=== PATIENT | male | born 1960 | race Caucasian/White ===

== ENCOUNTER 2020-08-07 22:59 | Inpatient (IN) | payer OTHER ==
[~2020-08-07] VITALS: Ht 182.9 cm; Wt 93.0 kg
--- NOTE | 2020-08-07 22:59 | NUR ---
ADMIT 59 YO M FROM INCARCERATION WITH N/V SOB NEWLY DX COVID HX GERD AT FIB.HAVING LO SAO2 READINGS NO CP NO COUGH NO SOB.SAYS HE HAS VOMITED PAST SEVERAL DAYS BUT STILL HAS APPETITE.
--- NOTE | 2020-08-07 23:51 | NUR ---
MEDICATED FOR UNCONTROLLED A FIB.DENIES CP NO SOB NO COUGH OR CONGESTION.VENT RATE VARIABLE 97-125 BPM
[2020-08-07 23:52] LABS: HEMATOCRIT 48.3 % (39.0-50.0); HEMOGLOBIN 16.1 g/dl (14.0-18.0); IMMATURE GRANULOCYTES 0.4 % (0.0-5.0); MEAN CELL VOLUME 94.5 fL CALC (80.0-100.0); MEAN CORPUSCULAR HGB 31.5 pG CALC (26.0-32.0); MEAN CORPUSCULAR HGB CONC 33.3 g/dL CAL (32.0-36.0); NEUT# 6.84 thou/uL (1.82-7.42); RED BLOOD COUNT 5.11 mill/uL (4.70-6.10); RED CELL DISTRI WIDTH 11.8 % (11.5-15.5)
[2020-08-08] VITALS (7 sets, daily range): BP systolic 106–170; BP diastolic 63–87
[2020-08-08 00:04] LABS: ALBUMIN 4.1 g/dL (3.2-5.0); ALKALINE PHOSPHATASE 66 u/l (38-126); ANION GAP 16 (6-22 (CALC)); BUN 30 mg/dL (9-20); BUN/CREATININE RATIO 41 (12-20 (CALC)); CARBON DIOXIDE 22 mmol/l (22-30); CHLORIDE 105 mmol/l (95-108); CREATININE 0.7 mg/dL (0.7-1.3); GFR > 60 ML/MIN (>=60 (CALC)); GFR FOR AFR.AMER. > 60 ML/MIN (>=60 (CALC)); SGOT/AST 86 u/l (17-59); SODIUM 138 mmol/l (137-146); TOTAL PROTEIN 7.9 g/dL (6.3-8.2)
[2020-08-08] MEDS ORDERED: PROTONIX40 M2 PO (00:08)
[2020-08-08] MEDS ORDERED: LEVOTHYROXIN50 MC1 PO (00:09)
[2020-08-08] MEDS ORDERED: DIGITEK0.25 M1 PO (00:10)
[2020-08-08] MEDS ORDERED: LIPITOR20 M1 PO (00:10)
[2020-08-08] MEDS ORDERED: EYE ALLERG1 (00:12)
--- NOTE | 2020-08-08 00:12 | NUR ---
AT FIB V RATE VARIABLE FROM 93-122 BPM.NO CP NO SOB
[2020-08-08] MEDS ORDERED: DILTIAZEM90 M1 PO (00:14)
[2020-08-08] MEDS ORDERED: WARFARIN SODIUM1 MG PO (00:16)
[2020-08-08] MEDS ORDERED: CARBAMAZEPIN200 M1 PO (00:16)
[2020-08-08] MEDS ORDERED: MIRTAZAPINE15 M1 PO (00:17)
[2020-08-08 00:18] LABS: INTERNATIONAL NORMALIZED RATIO 1.4 RATIO (0.7-1.3); PROTHROMBIN TIME 13.7 SECONDS (9.0-12.5)
[2020-08-08 00:33] LABS: DIGOXIN < 0.4 ng/mL (0.8-2.0)
--- NOTE | 2020-08-08 00:44 | NUR ---
WATER PO.AT REQUEST OF PT.NO COUGH NO CONGESTION
--- NOTE | 2020-08-08 01:40 | NUR ---
IV FLUIDS INFUSING ORDERED WITHOUT REMARK NO COUGH NO CONGESTION
[2020-08-08 02:01] LABS: C-REACTIVE PROTEIN 25.4 mg/dL (0-0.9)
--- NOTE | 2020-08-08 02:10 | NUR ---
PHONE REPORT TO NURSE JENSEN ON MS
--- NOTE | 2020-08-08 02:15 | NUR ---
PT TRANSPORTED TO [facility] VIA WC ON O2 AND TELE IN STABLE CONDITION
--- NOTE | 2020-08-08 02:25 | NUR ---
PT TO ROOM VIA WC ACCOMPANIED BY STAFF AND GUARD X1; O2 4L VIA NC, LUNGS WITH CRACKLES AT THE BASES, EYEGLASS FRAMES POLISHER COUGH NOTED; PT DENIES PAIN; A/0 X4; TELE MONITOR IN PLACE AFIB 90 PER ER UC; #[address] IVF INFUSING WITHOUT DIFFICULTY; PT VOIDS IN URINAL WELL; PT ORIENTED TO ROOM AND CALL SYSTEM; RT ANKLE SHACKLED TO BED; WILL CONTINUE TO MONITOR.
--- NOTE | 2020-08-08 04:33 | NUR ---
REPORT RECEIVED FROM LINDA JENSEN. PT RESTING IN BED ON RIGHT SIDE. C/O DISCOMFORT BEHIND LEFT EAR AND REPORTS THAT THE AREA FEEL "HARD". NO SWELLING OR REDNESS NOTED TO AREA. C/O GENERALIZED BODY ACHES. RESPIRATIONS EVEN AND UNLABORED ON 3L O2 VIA NC; SPO2 92%. REMAINS ON AIRBORNE/CONTACT PRECAUTIONS FOR POSITIVE COVID. GUARD AT BEDSIDE. CALL LIGHT WITHIN REACH.
--- NOTE | 2020-08-08 05:35 | NUR ---
RT AT BEDSIDE FOR EKG.
--- NOTE | 2020-08-08 07:22 | NUR ---
PT note Patient is screened for PT intervention and no needs are identified at this time
--- NOTE | 2020-08-08 09:20 | NUR ---
PT USED CALL LIGHT TO REPORT C/O OF CHEST PRESSURE; HR IN THE 120'S; AFIB ON NURSE ORTHO. DR. DAVILA NOTIFIED AND HOME MEDS SCHEDULED. WILL CONTINUE TO MONITOR.
--- NOTE | 2020-08-08 09:41 | NUR ---
PT AMBULATED TO BATHROOM FOR BOWEL MOVEMENT; NOT UP TO CHAIR.
--- NOTE | 2020-08-08 10:20 | NUR ---
CARDIZEM PO GIVEN FOR AFIB RVR; HR IN THE 160'S; PT SITTING UP IN CHAIR WITH NO COMPLAINTS AT THIS TIME. ROCEPHIN INFUSING; IV SITE APPEARS HEALTHY AND FLUSHES. NAUSEA HAS SUBSIDED AFTER EPISODE OF DIARRHEA.
--- NOTE | 2020-08-08 10:48 | NUR ---
89% ON 4L VIA NC; PT SITTING UP IN CHAIR; BREATHING TECHNIQUES ENCOURAGED. OXYGEN TITRATED UP TO 5L; WILL CONTINUE TO MONITOR.
--- NOTE | 2020-08-08 11:33 | NUR ---
DIRECTOR INDUSTRIAL RELATIONS CONTINUES TO READ AFIB RVR WITH HEART RATE IN THE 160'S WHILE PT IS AT REST. EKG ORDERED.
--- NOTE | 2020-08-08 11:45 | NUR ---
RT AT BEDSIDE FOR EKG.
--- NOTE | 2020-08-08 12:22 | NUR ---
EKG READING OF AFIB 116. VSS. MANUAL HR 108; ACCU CHECK 213. PT SLIGHTLY DIAPHORETIC, OTHERWISE ASYMPTOMATIC. DENIES CHEST PRESSURE, NAUSEA, SOB. SPO2 92% ON 5L. LABS OBTAINED BY NURSE AND SENT TO LAB AT THIS TIME. PER [facility] SAMPLING EXPERT INSTRUCTED TO NOTIFY NURSE OF HEART RATE SUSTAINING GREATER THAN 125. PT NOW SITTING UP EATING FULL LIQUID LUNCH; PT REQUESTED FULL LIQUID DIET DUE TO NAUSEA. CALL LIGHT WITHIN REACH.
[2020-08-08 13:02] LABS: DIGOXIN 0.4 ng/mL (0.8-2.0); MAGNESIUM 2.1 mg/dL (1.6-2.3)
--- NOTE | 2020-08-08 13:58 | NUR ---
UP TO BATHROOM FOR BM; INCONTINENT OF SOME DUE TO URGENCY. HEART RATE INCREASED INTO 140S-160S WTH EXERTION.
--- NOTE | 2020-08-08 16:01 | NUR ---
SPO2 ON 5L IS NOW 84-87%; OXYGEN TITRATED UP TO 6L VIA NC; SPO2 CURRENTLY 91% WITH ENCOURAGED BREATHING; PT DOES NOT TAKE DEEP BREATHS. IV FLUIDS DISCONTINUED PER ORDER. WILL CONTINUE TO MONITOR.
--- NOTE | 2020-08-08 16:33 | NUR ---
HIGH FLOW NC APPLIED WITH HUMIDIFIED OXYGEN AT 6L.
--- NOTE | 2020-08-08 18:00 | NUR ---
INCENTIVE SPIROMETER PROVIDED; PT GIVEN VERBAL EDUCATION AND INSTRUCTION. SPO2 93% 6L HF NC WHILE PERFORMING RETURN DEMONSTRATION. INSPIRATORY VOLUME ALMOST TO 1500. PT UP TO CHAIR FOR DINNER.
--- NOTE | 2020-08-08 20:52 | NUR ---
PT MEDICATED ORDERS PROVIDE AND ASSESSMENT COMPLETED AT THIS TIME. NO S/O DISTRESS NOTED. PT IS IN HIGH FOWLERS POSITION IN THE BED. OXYGEN HIGH FLOW 6L AT THIS TIME. OXYGEN SAT LEVEL 96% AT THIS TIME. WILL CONTINUE TO MONITOR CLOSELY. PT DENIES FEELING SOB AT THIS TIME. CALL LIGHT AT SIDE AND PT ENCOURAGED TO CALL NEEDS ARISE. GUARD X1 AT BEDSIDE WHEN WE ENTER THE ROOM, OTHERWISE GUARD STAYS OUTSIDE THE ROOM.
--- NOTE | 2020-08-08 23:40 | NUR ---
PT MEDICATED ORDERS PROVIDE AND ASSESSMENT COMPLETED AT THIS TIME. NO S/O DISTRESS NOTED. ENCOURAGED PT TO CALL ANY NEEDS ARISE. GUARD AT BEDSIDE X1 AND CALL LIGHT AT SIDE.
[2020-08-09] VITALS: BP 111/62
[2020-08-09 04:00] VITALS: BP 96/55
--- NOTE | 2020-08-09 04:00 | NUR ---
CAMPUS COORDINATOR and guard in with pt transferring to restroom.
[2020-08-09 05:27] LABS: HEMOGLOBIN 14.4 g/dl (14.0-18.0); IMMATURE GRANULOCYTES 0.7 % (0.0-5.0); MEAN CELL VOLUME 94.3 fL CALC (80.0-100.0); MEAN CORPUSCULAR HGB 31.6 pG CALC (26.0-32.0); MEAN CORPUSCULAR HGB CONC 33.5 g/dL CAL (32.0-36.0); NEUT# 5.63 thou/uL (1.82-7.42); RED BLOOD COUNT 4.56 mill/uL (4.70-6.10); RED CELL DISTRI WIDTH 11.8 % (11.5-15.5)
[2020-08-09 05:47] LABS: INTERNATIONAL NORMALIZED RATIO 1.4 RATIO (0.7-1.3)
[2020-08-09 06:04] LABS: ALBUMIN 3.3 g/dL (3.2-5.0); ALKALINE PHOSPHATASE 64 u/l (38-126); ANION GAP 12 (6-22 (CALC)); BILIRUBIN, TOTAL 0.7 mg/dL (0.0-1.4); BUN 27 mg/dL (9-20); BUN/CREATININE RATIO 40 (12-20 (CALC)); CARBON DIOXIDE 26 mmol/l (22-30); CHLORIDE 107 mmol/l (95-108); CREATININE 0.7 mg/dL (0.7-1.3); GFR > 60 ML/MIN (>=60 (CALC)); GFR FOR AFR.AMER. > 60 ML/MIN (>=60 (CALC)); POTASSIUM 4.3 mmol/l (3.5-5.1); SGOT/AST 116 u/l (17-59); SODIUM 140 mmol/l (137-146)
[2020-08-09 06:16] LABS: C-REACTIVE PROTEIN 19.8 mg/dL (0-0.9)
[2020-08-09 08:00] VITALS: BP 89/52
--- NOTE | 2020-08-09 09:00 | NUR ---
PT SEEN AWAKE, ALERT, ORIENTED X 3. LUNGS CLEAR BUT DIMINISHED THROUGHOUT, 6 LPM UPPED TO 8 LPM SA PER SAT 90%. CARDIZEM HELD AT THIS TIME PER BP 89/52. PT DOES BECOME TACHYCARDIC WHEN UP TO BR INTO THE 130-170 RANGE PER CULLET CRUSHER AND WASHER. MACHUCA.
[2020-08-09 11:41] VITALS: BP 100/56
--- NOTE | 2020-08-09 13:00 | NUR ---
PT CONTNUES AT 8 LPM, SATS MID 90s. PT SEEN PRONE IN BED. NO ACUTE DISTRESS PT AT REST IN THE BED.
[2020-08-09 15:29] VITALS: BP 118/65
--- NOTE | 2020-08-09 17:11 | NUR ---
NO SIGNIFICANT CHANGE IN STATUS PT REMAINS AT REST IN THE BED OR CHAIR. GUARDS X 2 OUTSIDE ROOM.
[2020-08-09 19:00] VITALS: BP 121/73
--- NOTE | 2020-08-09 20:55 | NUR ---
PT MEDICATED ORDERS PROVIDE AND ASSESSMENT COMPLETED AT THIS TIME. LUNG SOUNDS CLEAR/DIM THROUGHOUT, MILD WHEEZE RUL. REPORTS 2X LOOSE STOOL. PT IS ON 8LHIGH FLOW NC AT THIS TIME. DENIES FEELING SOB AT THIS TIME. PT IS SITTING UP IN RECLINER. NO S/O DISTRESS AT THIS TIME.
[2020-08-10] VITALS: BP 107/64
--- NOTE | 2020-08-10 00:04 | NUR ---
PT SLEEPING, NO S/O DISTRESS NOTED. CALL LIGHT AT SIDE.
--- NOTE | 2020-08-10 02:00 | NUR ---
Pt sleeping, awoke to my entering room. Attempted to titrate oxygen level down, pt 02sat level @92% on 6L kept pt on 6L at this time. pt denies any other needs.
[2020-08-10 04:00] VITALS: BP 98/53
--- NOTE | 2020-08-10 05:55 | NUR ---
PT SLEEPING SOUNDLY, NO S/O DISTRESS. GUARD OUTSIDE ROOM.
[2020-08-10 07:48] VITALS: BP 128/79
--- NOTE | 2020-08-10 07:48 | NUR ---
RECIEVED REPORT NUBIA BRYANT RN. PT RESTING IN SEMI FOWLERS POSITION UPON ENTERING ROOM. INRTODUCED SELF TO PT AND DISCUSSED POC. PT IS A/O AND FROM [facility] WITH GUARD OUTSIDE ROOM. ASSESSMENT AND VITALS OBTAINED. RESPIRATIONS ARE EVEN AND UNLABORED ON 8L HIGH FLOW. O2 SAT 84%. OXYGEN INCREASED TO 10L HIGH FLOW SATING AT 93% WITH PT IN PRONE POSITION. WRITTER ENCOURGAED PT RESTING IN PRONE POSITION. PT REFUSED.MD TO BE NOTIFIED. HEART RHYTHM NORMAL WITH TELE IN PLACE, AFIB 108 PER ER MONITORING. #18G IN LEFT HAND FLUSHED SITE APPEARS HEALTHY AND PATENT. PT EDUCATED ON NEED FOR CHANGING DUE TO EMS SITE. PT VERBAILZED UNDERSTANDING. PT DENIES ANY PAIN OR DISCOMFORTS AT THIS TIME. ALL SAFETY PRECAUTIONS ARE IN PLACE WIHT CALL LIGHT IN REACH. WILL CONTINUE TO MONITOR
--- NOTE | 2020-08-10 08:12 | NUR ---
PRELIM BLOOD CX RESULTS SHOW GRAM POSITIVE COCCI IN 1 AEROBIC BOTTLE. RESULTS CALLED TO MARIO HERNANDEZ. LIKELY A CONTAMINANT. WILL F/U WITH FINAL
[2020-08-10 12:12] VITALS: BP 119/68
--- NOTE | 2020-08-10 12:15 | NUR ---
PT RESTING IN SEMI FOWLERS POSITION ON LEFT SIDE. RESPIRATIONS ARE EVEN AND UNLABORED ON 10L NC.NO SIGNS OF DISTRESS NOTED.TELE IN PLACE. PT DENIES ANY PAIN AT THIS TIME. PT TO BE TRANSFERED TO ICU. AWAITNG FOR ROOM TO BE CLEANED. ALL SFAETY PRECAUTIONS ARE IN PLACE WITH GUARDS OUTSIDE ROOM. ISOLATION PRECAUTIONS IN PLACE. WILL CONTINUE TO MONITOR
--- NOTE | 2020-08-10 14:58 | NUR ---
REPORT GIVEN TO LINDA FRANK.
--- NOTE | 2020-08-10 15:00 | NUR ---
NEW #20G STARTED IN LAC, SITE APPEARS HEALTHY AND PATENT. #18G IN LH REMOVED WITH CATHATER STILL INTACT. PT TOLERATED WELL.
--- NOTE | 2020-08-10 15:20 | NUR ---
PT TRANSFERED TO IVCU BED 1 VIA BED
--- NOTE | 2020-08-10 15:25 | NUR ---
PT BROUGHT TO ROOM 1 FROM [facility] BECAUSE PT CONTINUES TO REQUIRE HIGH FLOW OXYGEN, PT ALERT/ORIENTED X3, DENIES ANY SOB AT THIS TIME, PT LAYING PRONE ON BED, OFFICER SITTING OUTSIDE OF ROOM WITH MASK ON.
--- NOTE | 2020-08-10 17:10 | NUR ---
PT RESTING QUIETLY ON BED, NO COMPLAINT AT THIS TIME, VITAL SIGNS STABLE.
[2020-08-10 18:00] VITALS: BP 106/54
--- NOTE | 2020-08-10 18:42 | NUR ---
PT LAYING IN BED, OFFICER OUTSIDE ROOM, NO DISTRESS NOTED, PT DENIES ANY SOB AT THIS TIME. LAYING ON LEFT SIDE WATCHING TV.
--- NOTE | 2020-08-10 20:30 | NUR ---
PATIENT RESTING IN BED. O2 VIA NC IN PLACE AT 10 LITERS. OXYGEN SATURATION MAINTAINING ABOVE 90%. RESPIRATIONS NONLABORED. VAD SALINE LOCKED. DENIES PAIN. SKIN INTACT. NO COMPLAINTS. SHACKLED TO BED. MONITORING.
[2020-08-10 21:00] VITALS: BP 97/54
--- NOTE | 2020-08-10 22:00 | NUR ---
PATIENT RESTING IN BED. NO ACUTE DISTRESS. MEDICATIONS GIVEN. COMPLIANT. NO COMPLAINTS. OXYGEN SATURATION MAINTIANING. BED IN LOW POSITION. CALL LIGHT WITHIN REACH. MONITORING.
[2020-08-11] VITALS (10 sets, daily range): BP systolic 94–127; BP diastolic 40–81
--- NOTE | 2020-08-11 | NUR ---
RESTING QUIETLY WITH EYES CLOSED. NO ACUTE DISTRESS NOTED. BED IN LOW POSITION. CALL LIGHT WITHIN REACH. MONITORING.
--- NOTE | 2020-08-11 01:59 | NUR ---
PATIENT OXYGEN SATURATION DROPPED TO MID 80S. INSTRUCTED PATIENT TO LIE MORE PRONE FOR FAM OXYGENATION. COMPLIED. OXYGEN SATURATION 89-90%. MONITORING.
--- NOTE | 2020-08-11 04:18 | NUR ---
PATIENT MAINTAINING OXYGENATION IN THE 90S. NO ACUTE DISTRESS OBSERVED. WARM BLANKETS GIVEN. C/O BEING COLD. REPORTS FEELING MUCH BETTER. MONITORING.
[2020-08-11 05:51] LABS: HEMATOCRIT 43.4 % (39.0-50.0); HEMOGLOBIN 14.2 g/dl (14.0-18.0); IMMATURE GRANULOCYTES 1.2 % (0.0-5.0); MEAN CELL VOLUME 95.4 fL CALC (80.0-100.0); MEAN CORPUSCULAR HGB 31.2 pG CALC (26.0-32.0); MEAN CORPUSCULAR HGB CONC 32.7 g/dL CAL (32.0-36.0); NEUT# 8.84 thou/uL (1.82-7.42); RED BLOOD COUNT 4.55 mill/uL (4.70-6.10); RED CELL DISTRI WIDTH 11.8 % (11.5-15.5)
[2020-08-11 06:27] LABS: ALKALINE PHOSPHATASE 60 u/l (38-126); BILIRUBIN, TOTAL 0.6 mg/dL (0.0-1.4); BUN 18 mg/dL (9-20); BUN/CREATININE RATIO 34 (12-20 (CALC)); C-REACTIVE PROTEIN 5.5 mg/dL (0-0.9); CARBON DIOXIDE 23 mmol/l (22-30); CHLORIDE 107 mmol/l (95-108); CREATININE 0.5 mg/dL (0.7-1.3); GFR > 60 ML/MIN (>=60 (CALC)); GFR FOR AFR.AMER. > 60 ML/MIN (>=60 (CALC)); SGOT/AST 36 u/l (17-59); SODIUM 137 mmol/l (137-146); TOTAL PROTEIN 5.9 g/dL (6.3-8.2)
[2020-08-11 06:28] LABS: ANION GAP 13 (6-22 (CALC)); POTASSIUM 5.8 mmol/l (3.5-5.1)
--- NOTE | 2020-08-11 06:34 | NUR ---
PATIENT RESTING IN BED. OXYGEN SATURATION 92% ON 12 LITERS NC. MONITORING.
--- NOTE | 2020-08-11 07:18 | NUR ---
PT REPORT RECEIVED, PT RESTING QUIETLY ON LEFT SIDE ON BED, PT DENIES ANY COMPLAINT AT THIS TIME.
--- NOTE | 2020-08-11 10:29 | NUR ---
PT SITTING UP IN CHAIR, VITAL SIGNS STABLE.
--- NOTE | 2020-08-11 12:40 | NUR ---
PT RESTING QUIETLY ON STRETCHER, VITAL SIGNS REMAIN STABLE.
--- NOTE | 2020-08-11 14:22 | NUR ---
PT PLACED BACK IN BED IN PRONE POSITION PER PT REQUEST. VITAL SIGNS STABLE
--- NOTE | 2020-08-11 14:26 | NUR ---
08/10/20 PT note Patient is seen for CPT including DBE . He appears stronger and in better spirits today. Incentivev spirmoter to 1000 but still unable to hold his breath for even 2 seconds. His CWE is remarkably poor. He is instructed to conitue DBE every hour he is awake
--- NOTE | 2020-08-11 15:16 | NUR ---
LAB HERE FOR BLOOD DRAW
[2020-08-11 15:46] LABS: INTERNATIONAL NORMALIZED RATIO 3.1 RATIO (0.7-1.3); PROTHROMBIN TIME 29.6 SECONDS (9.0-12.5)
--- NOTE | 2020-08-11 16:06 | NUR ---
WAITING FOR NEW ORDER AFTER PT/INR LEVEL OF COUMADIN FROM DR. HANNA
--- NOTE | 2020-08-11 17:48 | NUR ---
PT SITTING UP IN BED, WATCHING TV, DENIES ANY COMPLAINTS AT THIS TIME, DENIES ANY INCREASED SOB. ALERT/ORIENTED X3. GUARD REMAINS OUTSIDE OF DOOR
--- NOTE | 2020-08-11 19:00 | NUR ---
REPORT RECEIVED FROM Yoel TRACY RN, CARE OF PT ASSUMED AT THIS TIME.
--- NOTE | 2020-08-11 20:15 | NUR ---
UPON ENTERING ROOM PT IS SLEEPING, WAKES EASILY TO VERBAL STIMULI. WHEN ASKED HOW HE IS FEELING RESPONDS "WELL I WAS ASLEEP". PHYSICAL ASSESMENT COMPLETE. LUNGS ARE CLEAR AND DIMINISHED. PT DENIES COUGH AT PRESENT, STATES "ITS BEEN A WHILE SINCE I'VE HAD TO COUGH". PULMONARY HYGIENE REVIEWED AND ENCOURAGED. SCHEDULED MEDICATIONS ADMINISTERED, SEE E-MAR. PLAN OF CARE REVIEWED. PT VERBALIZES UNDERSTANDING AND DENIES QUESTIONS. PT IS A RESIDENT AT [facility]. LLE SHACKLED TO BED. GUARDS X2 SITTING OUTSIDE OF ROOM. PT IS ON ISOLATION FOR COVID-19. PT DENIES NEEDS AT THIS TIME. CALL WALKER WITHIN REACH, AGREES TO CALL PRN.
--- NOTE | 2020-08-11 21:00 | NUR ---
PT REPORTS CHEST PAIN, WHEN QUESTION DESCRIBES BURNING, 05/02, MIDSTERNAL WITH ONSET AFTER DINNER. DOES NOT RESPOND WHEN ASKED WHY HE HADN'T REPORTED PRIOR TO KNOW. HEMODYNAMICS REMAINS STABLE/WNL AND UNCHANGED. PT'S COMPLAINTS REPORTED TO Yoel HERNANDEZ APRN. ORDER FOR TROPONIN AND EKG NOW AND STATES SHE WILL ORDER SOMETHING FOR REFLUX VIA CPOE.
--- NOTE | 2020-08-11 21:10 | NUR ---
CARGO INSPECTOR ANITHA IN ROOM TO DRAW TROPONIN LEVEL. PT REPORTS NAUSEA AND REQUEST "SOMETHING TO THROW UP IN", EMESIS BAG PROVIDED.
--- NOTE | 2020-08-11 22:03 | NUR ---
EKG COMPLETED BY JORDAN ESPOSITO WITH RATE 0F 87, UNCHANGED FROM BASELINE.
--- NOTE | 2020-08-11 22:10 | NUR ---
TROPONIN RESULTS NEGATIVE. RESULTS OF TROPONIN AND EKG DISCUSSED WITH PATIENT. PT CON'T TO COMPLAIN OF NAUSEA, NO EMESIS, AND BURNING IN CHEST. PRN ZOFRAN AND MYLANTA ADMINISTERED, SEE E-MAR. PT'S PULSE-OX HAS COME OFF, NEW PULSE-OX APPLIED. PT STATES "THIS KEEPS COMING OFF", PT REFFERING TO NASAL CANNULA. IMPORTANCE OF MAINTAINING OXYGEN ON RE-INFORCED WITH PATIENT. PT VERBALIZES UNDERSTANDING. PT DENIES FURTHER NEEDS AT THIS TIME. CALL WALKER WITHIN REACH, AGREES TO CALL PRN.
[2020-08-12] VITALS (18 sets, daily range): BP systolic 90–113; BP diastolic 50–86
--- NOTE | 2020-08-12 00:08 | NUR ---
PT APPEARS TO BE SLEEPING COMFORTABLY, LAYING IN BED WITH EYES CLOSED, RESPIRATIONS REGULAR AND UNLABORED. NO APPARENT DISTRESS. CALL WALKER REMIANS WITHIN REACH. GUARDS REMAINS OUTSIDE OF ROOM.
--- NOTE | 2020-08-12 01:26 | NUR ---
HUMIDIFIER FOR HIGH FLOW NASAL CANNULA REFILLED
--- NOTE | 2020-08-12 03:35 | NUR ---
GREG MCKEON AT [facility] CALLS FOR UPDATES ON PT.
[2020-08-12 06:25] LABS: HEMATOCRIT 43.8 % (39.0-50.0); HEMOGLOBIN 14.4 g/dl (14.0-18.0); IMMATURE GRANULOCYTES 2.1 % (0.0-5.0); MEAN CELL VOLUME 96.1 fL CALC (80.0-100.0); MEAN CORPUSCULAR HGB 31.6 pG CALC (26.0-32.0); MEAN CORPUSCULAR HGB CONC 32.9 g/dL CAL (32.0-36.0); NEUT# 8.97 thou/uL (1.82-7.42); RED BLOOD COUNT 4.56 mill/uL (4.70-6.10)
[2020-08-12 06:42] LABS: INTERNATIONAL NORMALIZED RATIO 2.5 RATIO (0.7-1.3); PROTHROMBIN TIME 24.3 SECONDS (9.0-12.5)
[2020-08-12 06:51] LABS: ALBUMIN 3.1 g/dL (3.2-5.0); ALKALINE PHOSPHATASE 69 u/l (38-126); BILIRUBIN, TOTAL 0.5 mg/dL (0.0-1.4); BUN 20 mg/dL (9-20); BUN/CREATININE RATIO 33 (12-20 (CALC)); C-REACTIVE PROTEIN 5.1 mg/dL (0-0.9); CHLORIDE 103 mmol/l (95-108); CREATININE 0.6 mg/dL (0.7-1.3); GFR > 60 ML/MIN (>=60 (CALC)); GFR FOR AFR.AMER. > 60 ML/MIN (>=60 (CALC)); SGOT/AST 23 u/l (17-59); SODIUM 138 mmol/l (137-146); TOTAL PROTEIN 5.8 g/dL (6.3-8.2)
[2020-08-12 06:52] LABS: ANION GAP 10 (6-22 (CALC)); CARBON DIOXIDE 30 mmol/l (22-30); POTASSIUM 5.2 mmol/l (3.5-5.1)
--- NOTE | 2020-08-12 07:20 | NUR ---
pt resting in bed with eyes closed; no apparent distress noted; easily aroused; assessment completed at this time; pt alert and oriented; denies pain at current; no n/v noted; resp even and unlabored; exertional sob noted; lungs clear; skin color wnl; o2 per nc hi moy at 12L; production underwriter to attempt to wean o2; no cough noted; pt denies resp distress; hr irreg; strong pulses; no edema noted; afib on monitor; abd soft with bs present; no bm noted per production underwriter; voiding clear dk yellow urine without complication; urinal at bedside; #20 to lac saline locked; no redness or edema noted at site; plan of care/ IS/ am meds explained; call light within reach; will continue to monitor
--- NOTE | 2020-08-12 08:25 | NUR ---
awake in bed; o2 per nc; PT Jayme present at bedside; will continue to monitor
--- NOTE | 2020-08-12 09:10 | NUR ---
Patient is seen by PT for tapotment to the bases in sitting . He desaturated and demonstrated A fib with rate to the 120s with bedsaide sitting. Discussed with guard and patient that as soon as breakfast is over he needs to be sitting at EOB or prone. His CWE is improving but he has little tolerance for activity. When I left him, he had recovered to rate in the 80s and sats in the 90s. on O2 Am Pac is 12 given his activity intolerance
--- NOTE | 2020-08-12 10:04 | NUR ---
resting in bed with eyes closed; no apparent distress noted; o2 per nc; iv intact; call light within reach; will continue to monitor
--- NOTE | 2020-08-12 11:20 | NUR ---
PATIENT VOMITTING AT THIS TIME 400 ML. IV 4MG OF IV ZOFRAN GIVEN AT THIS TIME. PATIENT REPOSITION ONTO LEFT SIDE. SIDERAILS UP CALL LIGHT WITHIN REACH.
--- NOTE | 2020-08-12 11:20 | NUR ---
call placed to Justin Slaughter APRN in regards to pt complaints of chest pain; orders to be placed
--- NOTE | 2020-08-12 11:32 | NUR ---
pt admits to midsternal burning chest pain rating 10/10; medicated as per orders
--- NOTE | 2020-08-12 12:00 | NUR ---
Dr Baez notified per this life insurance underwriter in regards to pt complaints of burning chest pain midsternal rating 10/10; orders received and on chart; pt resting in bed; guard at outside room; iv intact; afib on monitor; o2 per nc; call light within reach; will continue to monitor
--- NOTE | 2020-08-12 14:20 | NUR ---
awake in bed; admits to feeling better since taking a nap; pt offers no complaints at this time; denies chest pain; afib on monitor; o2 per nc; iv flushed and patent; meds infusing; call light within reach; will continue to monitor
--- NOTE | 2020-08-12 15:59 | NUR ---
resting in bed with eyes closed; no apparent distress noted; o2 per nc; iv intact; afib on monitor; guard x1 outside room; call light within reach; will continue to monitor
--- NOTE | 2020-08-12 17:52 | NUR ---
resting in bed with eyes closed; no apparent distress noted; resp even and unlabored; o2 per nc at 12L; iv intact; afib on monitor; guard x1 outside of door; call light within reach
--- NOTE | 2020-08-12 19:00 | NUR ---
REPORT RECEIVED FROM Jocelyne HICKS RN, CARE OF PT ASSUMED AT THIS TIME.
--- NOTE | 2020-08-12 20:15 | NUR ---
PT APPEARS TO BE SLEEPING COMFORTABLY, RESPIRATIONS REGULAR AND UNLABORED, EYES CLOSED, NO APPARENT DISTRESS, SPO2 REMAINS >92%. PT WAKES EASILY TO VERBAL STIMULI. PHYSICAL ASSESMENT COMPLETE. PTS SPO2 DROPS T0 88-89% WHEN SITTING UP IN BED CONVERSING. STATES HAS BEEN TIRED ALL DAY, STATES "I HAVENT EVEN BEEN ABLE TO TOUCH MY DINNER". PT'S TRAY DOES REMAIN AT BEDSIDE UNTOUCHED. WHEN ASKED ABOUT INCENTIVE SPIROMETRY PT STATES HE HAS BEEN TO TIRED TO PERFORM. PULMONARY HYGIENE REVIEWED WITH PT AND ENCOURAGED. PT HAS A MOIST SOUNDING COUGH, REPORTS NON-PRODUCTIVE. LUNGS ARE CLEAR AND DIMINSIHED. SCHEDULED MEDICATIONS ADMINISTERED, SEE E-MAR. PLAN OF CARE REVIEWED, PT VERBALIZES UNDERSTANDING AND DENIES QUESTIONS. PT DENIES FURTHER NEEDS AT THIS TIME. CALL WALKER IN REACH, AGREES TO CALL PRN.
--- NOTE | 2020-08-12 22:17 | NUR ---
400 ML CLEAR YELLOW URINE EMPTIED FROM URINAL. PT RESTING IN BED LAYING ON HIS LEFT SIDE. RESPIRATIONS REGULAR AND UNLABORED. SPO2 97%. DENIES FURTHER NEEDS AT THIS TIME. CALL WALKER WITHIN REACH, AGREES TO CALL PRN.
[2020-08-13] VITALS (14 sets, daily range): BP systolic 90–119; BP diastolic 44–84
--- NOTE | 2020-08-13 04:22 | NUR ---
PT SITTING UP IN BED EATING PUDDING.
[2020-08-13 05:20] LABS: INTERNATIONAL NORMALIZED RATIO 2.8 RATIO (0.7-1.3); PROTHROMBIN TIME 26.4 SECONDS (9.0-12.5)
--- NOTE | 2020-08-13 05:35 | NUR ---
400 ML CLEAR YELLOW URINE EMPTIED FROM URINAL. PT RESTING IN BED LAYING ON HIS LEFT SIDE. RESPIRATIONS REGULAR AND UNLABORED. SPO2 96%. DENIES FURTHER NEEDS AT THIS TIME. CALL WALKER WITHIN REACH, AGREES TO CALL PRN.
--- NOTE | 2020-08-13 07:25 | NUR ---
pt awake in bed; no apparent distress noted; assessment completed at this time; pt agrumentive/ noncompliant with this underwriter; stating "black on his arm" while pointing to 2 areas; pt reassured one was a bruise and the other was the black writing on the iv label; pt admits to chest pain; denies n/v; resp even and unlabored; lungs clear/diminished bases; skin color wnl; o2 per nc at 12L; titrated to 10L with desats noted at 86%, o2 back up to 12L; checkroom attendant cough noted; hr reg; strong pulses; no edema noted; afib on monitor; abd soft with bs present; no bm noted; pt voiding without complication; urinal at bedside; #22 flushed and patent to lac; no redness or edema noted at site; covid prec continued; plan of care/ am meds explained; call light within reach; will continue to monitor
--- NOTE | 2020-08-13 08:27 | NUR ---
Dr Baez present at bedside to asses spt and discuss plan of care
--- NOTE | 2020-08-13 10:05 | NUR ---
resting in bed with eyes closed; no apparent distress noted; guard present outside of door; iv intact and patent; afib on monitor; o2 per nc; call light within reach; will continue to monitor
--- NOTE | 2020-08-13 11:45 | NUR ---
[facility] facility called per caption writer; spoke with LINDA Butt; update provided
--- NOTE | 2020-08-13 12:15 | NUR ---
awake in bed eating lunch; no apparent distress noted; iv intact; o2 per nc; afib on monitor; call light within reach; will continue to monitor
--- NOTE | 2020-08-13 14:02 | NUR ---
awake in bed resting on right side; no apparent distress noted; o2 per nc; iv intact; guard x1 outside room door; call light within reach; will continue to monitor
--- NOTE | 2020-08-13 16:00 | NUR ---
pt resting on right side; no apparent distress noted; afib on monitor; brief freq episodes of bradycardia noted/ afib 40s; iv intact; pt offers no complaints at present; o2 per nc; guard x1 outside door; call light within reach; will continue to monitor
--- NOTE | 2020-08-13 16:12 | NUR ---
ROBERT Slaughter called per this va underwriter; informed per this va underwriter that is having brief episodes of bradycardia/ afib 40s; meds reviewed; order received to hold digoxin this HS; will continue to monitor
--- NOTE | 2020-08-13 17:58 | NUR ---
resting in bed; no apparent distress noted; o2 per nc; afib on monitor; call light within reach
--- NOTE | 2020-08-13 20:15 | NUR ---
RESTING IN BED ON ROUNDS. RESP NON-LABORED AT REST. O2 AT 12 L, O2 SAT 97% BREATH SOUNDS DIMINISHED THROUGHOUT LUNG BRONSON. NO PERIPHERAL EDEMA, PULSES INTACT. SALINE LOCK IN LAC, SITE BENIGN. DISCUSSED PLAN OF CARE. DENIES NEEDS AT THIS TIME. CALL WALKER IN REACH. ASSOCIATE DIRECTOR SHOWS AFIB. SHACKLE TO RIGHT ANKLE, CMS ADEQUATE. GUARD IN ATTENDANCE.
--- NOTE | 2020-08-13 22:00 | NUR ---
RESTING IN BED, WATCHING TV. VSS. MONITOR AFIB.
[2020-08-14] VITALS (19 sets, daily range): BP systolic 84–133; BP diastolic 52–75
--- NOTE | 2020-08-14 | NUR ---
AWAKE, WATCHIN GTV. O2 REMAINS AT 12 L. O2 SAT 93% AFIB ON MONITOR.
--- NOTE | 2020-08-14 00:22 | NUR ---
PATIENT HAD 11 BEAT RUN OF VTACH, ASYMPTOMATIC, SELF TERMINATING. WILL MONITOR CLOSELY.
--- NOTE | 2020-08-14 02:00 | NUR ---
RESTUNG QUIETLY. VSS. AFIB ON MONITOR.
--- NOTE | 2020-08-14 04:01 | NUR ---
NO CHANGES TO REPORT. VSS. RESTING WITHOUT COMPLAINTS. O2 SAT 95% ON 12 L O2 PER NC. AFIB ON MONITOR.
--- NOTE | 2020-08-14 05:50 | NUR ---
SLEPT FOR LONG INTERVALS DURING THE NIGHT. AWAKENS EASILY TO NAME. VSS. REMIANS AFIB ON MONITOR.
[2020-08-14 05:58] LABS: HEMATOCRIT 44.7 % (39.0-50.0); HEMOGLOBIN 14.6 g/dl (14.0-18.0); IMMATURE GRANULOCYTES 2.2 % (0.0-5.0); MEAN CELL VOLUME 96.3 fL CALC (80.0-100.0); MEAN CORPUSCULAR HGB 31.5 pG CALC (26.0-32.0); MEAN CORPUSCULAR HGB CONC 32.7 g/dL CAL (32.0-36.0); NEUT# 10.43 thou/uL (1.82-7.42); RED BLOOD COUNT 4.64 mill/uL (4.70-6.10)
[2020-08-14 06:32] LABS: ALKALINE PHOSPHATASE 70 u/l (38-126); ANION GAP 11 (6-22 (CALC)); BILIRUBIN, TOTAL 0.7 mg/dL (0.0-1.4); BUN 24 mg/dL (9-20); BUN/CREATININE RATIO 44 (12-20 (CALC)); C-REACTIVE PROTEIN 2.3 mg/dL (0-0.9); CARBON DIOXIDE 27 mmol/l (22-30); CHLORIDE 101 mmol/l (95-108); CREATININE 0.6 mg/dL (0.7-1.3); GFR > 60 ML/MIN (>=60 (CALC)); GFR FOR AFR.AMER. > 60 ML/MIN (>=60 (CALC)); POTASSIUM 5.1 mmol/l (3.5-5.1); SGOT/AST 32 u/l (17-59); SODIUM 133 mmol/l (137-146)
[2020-08-14 06:46] LABS: INTERNATIONAL NORMALIZED RATIO 4.3 RATIO (0.7-1.3); PROTHROMBIN TIME 40.5 SECONDS (9.0-12.5)
--- NOTE | 2020-08-14 09:05 | NUR ---
PATIENT IN BED ALERT AND ORIENTED AT THIS TIME. O2 ON AT 12L. PATIENT DENIES ANY NAUSEA OR VOMITING AND STATES PAIN LEVEL AT THIS MOMENT IS A 0 OUT OF A PAIN SCALE OF 0-10. PATIENT REFUSING AT THIS TIME TO USE HIS INSENTIVE SPIROMETER. ALL SAFETY MEASURES ARE IN PLACE CALL LIGHT WITHIN REACH.
--- NOTE | 2020-08-14 09:15 | NUR ---
PATIENT IN BED RESTING AT THIS TIME. CALL LIGHT NEAR SIDERAILS UP X 2 O2 ON AT 12L.
--- NOTE | 2020-08-14 09:20 | NUR ---
AT BEDSIDE DISCUSSING POC.
--- NOTE | 2020-08-14 09:45 | NUR ---
PATIENT C/O NAUSEA AT THIS TIME 4MG OF ZOFRAN GIVEN PER ORDER. PATIENT VERBALIZES UNDERSTANDING OF MEDICTION.
--- NOTE | 2020-08-14 10:59 | NUR ---
PATIENT LAYING IN BED AT THIS TIME. PATIENT STATES HE IS NOT NAUSEATED AT THIS TIME. PATIENT O2 REMAINS ON AT 12L AT THIS TIME. LEFT ANKLE REMAINS SCHAKELED AND WITHOUT SKIN IRRATATION AT THIS TIME. AT THIS TIME GAUARD POSITIONED OUTSIDE OF ROOM ALL SAFETY MEASURES ARE IN PLACE CALL LIGHT WITHIN REACH.
--- NOTE | 2020-08-14 12:20 | NUR ---
PATIENT IN BED AT THIS TIME CALL LIGHT NEAR, INCENTIVE SPIROMETER OFFERED AT THIS TIME AND PATIENT REFUSED. PATIENT EDUCATED ON IMPORTANCE OF USING INCENTIVE SPIROMETER BUT PATIENT STILL REFUSING TO USE AT THIS TIME. PATIENT STATED "IT HURTS WHEN I TRY TO USE IT". PATIENT 02 TURNED DOWN AT THIS TIME TO 10L AND WILL CONTINUE TO MONITOR SPO2 RATE. ALL SAFETY MEASURES ARE IN PLACE CALL LIGHT NEAR.
--- NOTE | 2020-08-14 13:00 | NUR ---
PATIENT O2 MOVED UP TO 12L AT DUE TO SPO2 DROPPING DOWN TO 83%. PATIENT STATES HE "FELT LIKE HE WAS WORKING FOR AIR". AFTER 02 INCREASE SPO2 IS 91%.
--- NOTE | 2020-08-14 14:15 | NUR ---
PATIENT RESTING IN BED AT THIS TIME CALL LIGHT NEAR SIDERAILS UP X 2. CARDIZEM 90MG GIVEN AT THIS TIME. PATIENT DENIES NEEDED ANYTHING FOR HIS BOWELS AND STATES ITS BEEN "ABOUT 3 DAYS SINCE HIS LAST BM" PATIENT DOES HAVE ACTIVE BOWEL SOUNDS AT THIS TIME.
--- NOTE | 2020-08-14 15:40 | NUR ---
PATIENT IN BED AT THIS TIME O2 REMAINS ON AT 12 L , SPO2 IS 91%. PATEINT DENIES ANY NAUSEA OR PAIN AT THIS TIME. CALL LIGHT WITHIN REACH SIDERAILS UP X 2.
--- NOTE | 2020-08-14 17:27 | NUR ---
PATIENT IN BED AT THIS TIME DENIES ANY NEEDS CALL LIGHT WITHIN REACH. SIDERAILS UP X2 O2 ON AT 12L.
--- NOTE | 2020-08-14 18:00 | NUR ---
PATIENT IN BED AT THIS TIME C/0 NAUSEA. 4MG OF ZOFRAN GIVEN AT THIS TIME. ALL SAFETY MEASURES ARE IN PLACE CALL LIGHT NEAR SIDERAILS UP X 2.
--- NOTE | 2020-08-14 19:30 | NUR ---
RESTING IN BED WITH EYES CLOSED ON ROUNDS. AWAKENS TO NAME. ALERT AND ORIENTED. RESP SHALLOW, SLT LABORED. PATIENT STATES HE FEELS INCREASED SOB TODAY. O2 ON AT 12 L NC. O2 SAT 91% BREATH SOUNDS DIMINISHED THROUGHOUT LUNG BRONSON. OCC NON-PRODUCTIVE COUGH. NO PERIPHERAL EDEMA, PULSES PALPABLE. SALINE LOCK INTACT IN LAC. FOOD TECHNOLOGIST SHOWS AFIB, VARIABLE RATE. WILL MONITOR CLOSELY. DISCUSSED PLAN OF CARE. DENIES NEEDS AT THIS TIME. CALL WALKER IN REACH.
--- NOTE | 2020-08-14 22:00 | NUR ---
VSS. REMAINS AFIB ON MONITOR. RESTING QUIETLY IN BED.
--- NOTE | 2020-08-14 23:30 | NUR ---
ZOFRAN 4 M G IVP FOR NAUSEA AND EMESIS OF APPROX 100 ML GREEN LIQUID.
[2020-08-15] VITALS (25 sets, daily range): BP systolic 87–166; BP diastolic 53–80
--- NOTE | 2020-08-15 | NUR ---
ASLEEP. VSS. AFIB ON MONITOR.
--- NOTE | 2020-08-15 02:00 | NUR ---
NO CHANGES TO REPORT. SLEEPING. RESP NON-LABORED AT REST. VSS. AFIB ON MONITOR.
--- NOTE | 2020-08-15 04:00 | NUR ---
SLEEPING. NO CHANGES TO REPORT. HAS MAINTAINED O2 SAT DURING THE NIGHT FROM 95-100% RESP NON-LABORED AT REST.
[2020-08-15 06:00] LABS: ALBUMIN 3.1 g/dL (3.2-5.0); ALKALINE PHOSPHATASE 70 u/l (38-126); ANION GAP 8 (6-22 (CALC)); BILIRUBIN, TOTAL 0.5 mg/dL (0.0-1.4); BUN 24 mg/dL (9-20); BUN/CREATININE RATIO 41 (12-20 (CALC)); CARBON DIOXIDE 32 mmol/l (22-30); CHLORIDE 101 mmol/l (95-108); CREATININE 0.6 mg/dL (0.7-1.3); GFR > 60 ML/MIN (>=60 (CALC)); GFR FOR AFR.AMER. > 60 ML/MIN (>=60 (CALC)); POTASSIUM 4.9 mmol/l (3.5-5.1); SGOT/AST 22 u/l (17-59); SODIUM 136 mmol/l (137-146); TOTAL PROTEIN 5.9 g/dL (6.3-8.2)
--- NOTE | 2020-08-15 07:15 | NUR ---
PATIENT IN BED AT THIS TIME ALERT AND ORIENTED. DENIES NAUSEA OR PAIN AT THIS TIME. O2 ON AT 12L. IV SITE INTACT AND WITHOUT S/S OF IV SITE INFECTION. SPO2 AT THIS TIME IS 98%. ALL SAFETY MEASURES ARE IN PLACE CALL LIGTH NEAR SIDERAILS UP X 2 GAURD POSITIONED OUTSIDE OF ROOM.
--- NOTE | 2020-08-15 07:30 | NUR ---
DR. HANNA IN TO SEE PATIENT AND TURNED O2 DOWN TO 10L AT THIS TIME FOR TITRATION.
--- NOTE | 2020-08-15 09:15 | NUR ---
PATIENT IN BED EATING BREAKFAST THIS TIME DENIES ANY NEEDS CURRENTLY ALL SAFETY MEASURES ARE IN PLACE. CALL LIGHT WITHIN REACH.
--- NOTE | 2020-08-15 11:28 | NUR ---
PATIENT IN BED A THIS TIME RESTING WITH 02 ON AT 10L AND SPO2 AT 96%. PATIENT DENIES SHORTNESS OF BREATH AND DENIES NAUSEA. ALL SAFETY MEASURE ARE IN PLACE CALL LIGHT NEAR.
[2020-08-15 11:43] LABS: INTERNATIONAL NORMALIZED RATIO 2.9 RATIO (0.7-1.3); PROTHROMBIN TIME 27.6 SECONDS (9.0-12.5)
--- NOTE | 2020-08-15 14:00 | NUR ---
PATIENT IN BED RESTING WITH EYES CLOSED. RESPIRATIONS UNLABORED AT THIS TIME AND SPO2 IS 98% ON 10L OF 02. CALL LIGHT IS WITHIN REACH AND ALL SAFETY MEASURES ARE IN PLACE AT THIS TIME.
--- NOTE | 2020-08-15 18:00 | NUR ---
PATIENT SITTING UP IN BED AT THIS TIME EATING DINNER. PATIENT DENIES ANY NEEDS AT THIS TIME. PATIENT DENIES NAUESA AT TIME. PATIENT URINAL EMPTY AT THIS TIME 200 MLS OF YELLOW URINE. O2 REMAINS ON AT 10L AND SPO2 AT THIS TIME IS 91%. PATIENT DENIES ANY SHORTNESS OF BREATH AT THIS TIME. IV IS PATENT #22 LEFT WRIST AND REMAINS S/L AT THIS TIME. PATIENT IN STABLE CONDITION FOR ON COMING SHIFT.
--- NOTE | 2020-08-15 19:00 | NUR ---
REPORT RECEIVED FROM Yoel MOSS RN, CARE OF PT ASSUMED AT THIS TIME.
--- NOTE | 2020-08-15 20:17 | NUR ---
PT MEDICATED ORDERED. PAIN AND NAUSEA MEDICATIONS ADMINISTERED PER REQUEST. NO APPARENT DISTRESS NOTED. PT DENIES ANY OTHER CURRENT WANTS OR NEEDS. CALL LIGHT WITHIN REACH. WILL CONTINUE TO MONITOR.
--- NOTE | 2020-08-15 20:45 | NUR ---
PT WITH 100ML EMESIS, CHEWED FOOD.
--- NOTE | 2020-08-15 22:00 | NUR ---
PT RESTING IN BED, APPEARS COMFORTABLE AND IN NO DISTRESS, RESPIRATIONS REGULAR AND UNLABORED. HEMODYNAMICS STABLE. CALL WALKER WITHIN REACH, AGREES TO CALL PRN.
[2020-08-16] VITALS (19 sets, daily range): BP systolic 90–160; BP diastolic 47–91
--- NOTE | 2020-08-16 02:55 | NUR ---
PT APPEARS TO BE SLEEPING COMFORTABLY, NO APPARENT DISTRESS, RESPIRATIONS REGULAR AND UNLABORED. EYES CLOSED. HEMODYNAMICS STABLE. CALL WALKER REMAINS WITHIN REACH.
--- NOTE | 2020-08-16 04:45 | NUR ---
CONSOLE ASSEMBLER JERED IN ROOM TO DRAW AM LABS.
[2020-08-16 05:16] LABS: HEMATOCRIT 45.5 % (39.0-50.0); HEMOGLOBIN 15.1 g/dl (14.0-18.0); IMMATURE GRANULOCYTES 1.4 % (0.0-5.0); MEAN CELL VOLUME 95.8 fL CALC (80.0-100.0); MEAN CORPUSCULAR HGB 31.8 pG CALC (26.0-32.0); MEAN CORPUSCULAR HGB CONC 33.2 g/dL CAL (32.0-36.0); NEUT# 9.38 thou/uL (1.82-7.42); RED BLOOD COUNT 4.75 mill/uL (4.70-6.10); RED CELL DISTRI WIDTH 12.1 % (11.5-15.5)
--- NOTE | 2020-08-16 05:33 | NUR ---
JEN RT IN ROOM DRAWING AM G
--- NOTE | 2020-08-16 06:29 | NUR ---
08/15/20 PT note: Patient presents supine. He is beligerent when I enter the room. States he will not get OOB and refuses proning. He did comply with side lying and did perfrom incentive spirometer. He could not inspire past 800 today and is encouraged to increase activity Our plan is to continue to attempt to increase activity, promote pulmonary toilet and proper positioning. Am Pac is unachanged
--- NOTE | 2020-08-16 07:02 | NUR ---
RECIEVED REPORT FROM NURSE GONCALVES AT THIS TIME PATIENT CONDITION IS STABLE AT THIS TIME. PATIENT IN BED RESTING RESPIRATION UNLABORED ALL SAFETY MEASURES ARE IN PLACE AT THIS TIME.
[2020-08-16 07:17] LABS: ALKALINE PHOSPHATASE 68 u/l (38-126); ANION GAP 11 (6-22 (CALC)); BILIRUBIN, TOTAL 0.6 mg/dL (0.0-1.4); BUN 24 mg/dL (9-20); BUN/CREATININE RATIO 42 (12-20 (CALC)); C-REACTIVE PROTEIN 2.5 mg/dL (0-0.9); CARBON DIOXIDE 27 mmol/l (22-30); CHLORIDE 104 mmol/l (95-108); CREATININE 0.6 mg/dL (0.7-1.3); GFR > 60 ML/MIN (>=60 (CALC)); GFR FOR AFR.AMER. > 60 ML/MIN (>=60 (CALC)); POTASSIUM 4.9 mmol/l (3.5-5.1); SGOT/AST 24 u/l (17-59); SODIUM 136 mmol/l (137-146); TOTAL PROTEIN 5.9 g/dL (6.3-8.2)
--- NOTE | 2020-08-16 09:35 | NUR ---
PATIENT IN BED RESTING BIOFUELS PRODUCTION TECHNICIAN DONE AT THIS TIME O2 ON 10L HI-FLOW. PATIENT DENIES ANY NEEDS AT THIS TIME CALL LIGHT WITHIN REACH. PATIENT DENIES PAIN AT THIS TIME.
--- NOTE | 2020-08-16 10:05 | NUR ---
PATIENT LAYING IN BED ENCOURGING HIM TO GET UP TO CHAIR AND PATIENT REFUSES AT THIS TIME. PATIENT DENIES ANY NEEDS. PATIENT REMAINS ON HI-FLOW O2 AT 7L AND ALL SAFETY MEASURES ARE IN PLACE.
--- NOTE | 2020-08-16 11:02 | NUR ---
PATIENT WAS OFFERED MIRALAX FOR CONSTIPATION. PATIENT STATES "I DON'T FEEL CONSTIPATED". ENCOURAGED PATIENT TO GET UP AND SIT IN CHAIR AND PATIENT REFUSED TO GET UP AT THIS TIME. EDUCATED PATIENT ON RISK OF LAYING IN BED CONSTANTLY AND EDUCATED PATIENT ON USING INSENTIVSPIROMETER AND PATIENT REFUSED TO USE AT THIS TIME.
--- NOTE | 2020-08-16 11:43 | NUR ---
PATIENT REMAINS IN BED AT THIS DENIES ANY NEEDS. O2 REMAINS ON AT 10L HI-FLOW AT THIS TIME. PATIENT REFUSING TO GET UP AND SIT IN THE CHAIR. CALL LIGHT WITHIN REACH SIDERAILS UP X 2.
--- NOTE | 2020-08-16 14:00 | NUR ---
PATIENT SITTING IN BED EATING AT THIS TIME. PATIENT DENIES ANY NAUSEA AND OR PAIN AT THIS TIME. PATIENT ENCOURAGE TO DRINK FLUIDS NEEDED AND TO NOTIFY NURSE IF HE FEELS NAUSEA AT ANY TIME. CALL LIGHT WITHIN REACH SIDERAILS UP X 2.
--- NOTE | 2020-08-16 16:12 | NUR ---
PATIENT REMAINS IN BED AT THIS TIME. PATIENT ASKED IF HE WOULD LIKE TO SIT IN A CHAIR AND PATIENT STATES "NO". PATIENT DENIES ANY PAIN OR SHORTNESS OF BREATH AT THIS TIME. O2 REMAINS ON HI-FLOW AT 10L AT THIS TIME. ALL SAFETY MEASURES ARE IN PLACE CALL LIGHT WITHIN REACH.
--- NOTE | 2020-08-16 18:05 | NUR ---
PATIENT REMAINS IN BED AT THIS TIME. HI-FLOW O2 REMAINS AT 10L. PATIENT DENIES ANY NEEDS AT THIS TIME AND DENIES ANY NAUSEA OR PAIN. PATIENT OFFERED MIRLAX AT THIS TIME AND SARITA REFUSED. ALL SAFETY MEASURES ARE IN PLACE, SHAYY REMAINED OUTSIDE ROOM ALL SHIFT. CALL LIGHT IS WITHIN REACH. PATIENT STABLE AT THIS TIME FOR ON COMING SHIFT.
--- NOTE | 2020-08-16 21:02 | NUR ---
PT. SITTING UP IN BED WATCHING TV, NO RESP DISTRESS NOTED AT THIS TIME. ASSESSSMENT COMPLETED. C/O NAUSEA AND EPIGASTRIC PAIN; MEDICATED WITH PRN ULTRAM AND ZOFRAN ALONG WITH SCHED MEDS; B/P WNL; SP2 95-96% ON 10 LITERS/MIN HF NC.ENCOURAGED TO CALL FOR ANY NEEDS. LEATHER CARVER IN PLACE AND READING AFIB WITH HR 116. ENCOURAGED TO CALL FOR ANY NEEDS. FRESH WATER PROVIDED. CALL LIGHT IS IN REACH.
--- NOTE | 2020-08-16 23:25 | NUR ---
SPO2 IS AT 98-99% AND O2 TITRATED DOWN TO 9LITERS/MIN AND SPO2 97% NOW; WILL CONTINUE TO MONITOR AND CONTINUE TO TITRATE IF PT. TOLERATES. PT. DECLINES WANTING A BATH OR LINENS TO BE CHANGED. TOP SHEETS CHANGED ONLY. INSTRUCTED TO CALL IF PT. CHANGES HIS MIND; VERBALIZES UNDERSTANDING.URINAL EMPTIED.CALL LIGHT IS IN REACH.
[2020-08-17] VITALS (20 sets, daily range): BP systolic 90–141; BP diastolic 52–81
--- NOTE | 2020-08-17 02:00 | NUR ---
RESTING IN BED WITH NO DISTRESS NOTED; DENIES NEEDS. ENCOURAGED TO CALL FOR ANY NEEDS. CALL LIGHT IS IN REACH.
--- NOTE | 2020-08-17 03:15 | NUR ---
PT. TIRATED DOWN TO 7LITERS/MIN NC HF AND SPO2 96% WILL CONTINUE TO MONITOR. URINAL EMPTIED. DENIES NEEDS. CALL LIGHT IS IN REACH.
--- NOTE | 2020-08-17 05:35 | NUR ---
PT. SITTING UP IN BED WITH NO DISTRESS NOTED; DENIES NEEDS/PAIN. O2 WEANED DOWN TO 6LITERS/MIN HF NC AND SPO2 94-95%. URINAL EMPTIED. CALL LIGHT IS IN REACH.
[2020-08-17 05:44] LABS: HEMATOCRIT 43.8 % (39.0-50.0); HEMOGLOBIN 14.5 g/dl (14.0-18.0); IMMATURE GRANULOCYTES 1.1 % (0.0-5.0); MEAN CELL VOLUME 96.1 fL CALC (80.0-100.0); MEAN CORPUSCULAR HGB 31.8 pG CALC (26.0-32.0); MEAN CORPUSCULAR HGB CONC 33.1 g/dL CAL (32.0-36.0); NEUT# 9.29 thou/uL (1.82-7.42); RED BLOOD COUNT 4.56 mill/uL (4.70-6.10); RED CELL DISTRI WIDTH 12.1 % (11.5-15.5)
[2020-08-17 05:57] LABS: INTERNATIONAL NORMALIZED RATIO 1.5 RATIO (0.7-1.3); PROTHROMBIN TIME 14.4 SECONDS (9.0-12.5)
[2020-08-17 05:59] LABS: ALBUMIN 2.9 g/dL (3.2-5.0); ALKALINE PHOSPHATASE 74 u/l (38-126); ANION GAP 9 (6-22 (CALC)); BILIRUBIN, TOTAL 0.5 mg/dL (0.0-1.4); BUN 23 mg/dL (9-20); BUN/CREATININE RATIO 43 (12-20 (CALC)); CARBON DIOXIDE 30 mmol/l (22-30); CHLORIDE 102 mmol/l (95-108); CREATININE 0.5 mg/dL (0.7-1.3); GFR > 60 ML/MIN (>=60 (CALC)); GFR FOR AFR.AMER. > 60 ML/MIN (>=60 (CALC)); POTASSIUM 4.8 mmol/l (3.5-5.1); SGOT/AST 19 u/l (17-59); SODIUM 137 mmol/l (137-146); TOTAL PROTEIN 5.7 g/dL (6.3-8.2)
--- NOTE | 2020-08-17 07:00 | NUR ---
PT REPORT RECEIVED. PT ALERT/ORIENTED X3., SITTING UP IN CHAIR, HIGH FLOW REMAINS AT 6 WITH SATS AT 93, PT DENIES ANY COMPLAINTS AT THIS TIME
--- NOTE | 2020-08-17 09:06 | NUR ---
08/16/20 PT note At this point, the patient has been instructed in and received a written copy of HEP including DBE , 4 second breath hold exercises, and a copy of the proning positioning regimen. He is being titrated down on O2 and doing well. Our plan is to DC to home program
--- NOTE | 2020-08-17 09:09 | NUR ---
DR. OBRIEN STATES TO TRY AND TRANSFER PT BACK TO [facility] TODAY. CALLED AND SPOKE WITH MEDICAL THEY STATED THAT PT NEEDED TO BE ON 5 L OR LESS. NOTIFIED DR. OBRIEN AND HE ASKED TO START WEANING PT DOWN ON OXYGEN TO STABILIZE AT 90 OR ABOVE
--- NOTE | 2020-08-17 10:15 | NUR ---
PTS O2 LEVEL STAYS STEADY AT 92-93% ON O2 AT 4 LITRE PER N/C
--- NOTE | 2020-08-17 10:59 | NUR ---
CALLED FOR BED ON [facility] FOR PT TRANSFER, THEY WILL CALL ME BACK WITH A BED WHEN TELEMETRY BOX AVAILABLE
--- NOTE | 2020-08-17 11:53 | NUR ---
RECEIVED PATIENT FROM ICU ACCOMPANIED BY [facility]/NURSE GARCIA. PATIENT ORIENTED TO ROOM AND CALL LIGHT. VITAL SIGNS AT THIS TIME T. 97.2 R.20 P. 89 BP 120/80 SPO2 90% ON 5L HI-FLOW O2. ALL SAFETY MEASURES IN PLACE CALL LIGHT WITHIN REACH. DENIES ANY PAIN OR NEEDS AT THIS TIME.
--- NOTE | 2020-08-17 12:51 | NUR ---
PT UP TO CHAIR, BECAME INCREASED SOB, SATS DROPPED TO 88% AND REMAINED IN MID 80% FOR APPROX 10 MIN, UPPED 02 TO 5 L PER N/C AND SATS WENT BACK TO 89-90 % AND PT STATES FELT BETTER. REMAINS SITTING IN CHAIR
--- NOTE | 2020-08-17 13:15 | NUR ---
[facility] CALLED TO SAY IF POSSIBLE THEY WOULD LIKE TO HAVE PT DISCHARGED BACK TO THEIR FACILITY IF STABLE DUE TO COVERAGE FOR THE GUARDS, ADVISED TO CALL [phone] DIRECT LINE AFTER THIS STAFF HAS SPOKEN TO DR. OBRIEN. HAVE CALL OUT TO DR. OBRIEN AND WAITING FOR ANSWER.
--- NOTE | 2020-08-17 14:05 | NUR ---
PTS OXYGEN IS HOLDING AT 91% WHEN SITTING IN CHAIR.
--- NOTE | 2020-08-17 14:15 | NUR ---
GAVE PT A PARTIAL BATH, WITH MOVEMENT AND EXERTION PTS SATS DROPPED BACK TO 86-87 AND HE STATES INCREASED SOB, AFTER RESTING IN CHAIR FOR 5 MIN, SATS WENT BACK UP TO 90%. WILL CONTINUE TO MONITER.
--- NOTE | 2020-08-17 14:46 | NUR ---
SPOKE WITH NURSE KHALIDA AT FACILITY TO SEE IF THEY HAVE THE CAPABILITIES TO TAKE CARE OF PT AT THIS TIME. OXYGEN IS AT 5 L PER N/C WITH SATS STABILIZED AT 90% WITH ANY EXERCISE LIKE GETTING UP TO USE THE BATHROOM OR MOVING TO CHAIR, SATS DROP TO MID TO LOW 80'S WITH PT STATING INCREASED SOB. OXYGEN LEVEL WILL RETURN TO 90% ON 5 LITRES WITHIN A FEW MIN OF REMAINING SEATED. THE NURSE WILL SPEAK TO THEIR MANAGERS AND GIVE ME A RETURN CALL
--- NOTE | 2020-08-17 14:57 | NUR ---
SPOKE WITH LINDA GAXIOLA AT FACILITY, WHO SPOKE WITH THE NURSE PRACTIONER OLAF TRIVEDI, WHOM MADE THE DECISION TO HAVE PT STAY AT HOSPITAL DUE TO SATS DROPPING WITH ANY EXERTION AND THAT THEY ARE ONLY ABLE TO HANDLE 5 L PER N/C WITHOUT HAVING TO SEND THE PT OUT. PT WILL CONTINUE TO BE MONITERED IN ICU UNTIL [facility] HAS BED TO TRANSFER PT TO.
--- NOTE | 2020-08-17 15:10 | NUR ---
IV DISLODGED IN CHAIR WITH PT MOVEMENT. NEW IV SITE PLACED AND REMDESIVIER INFUSING AGAIN.
--- NOTE | 2020-08-17 16:57 | NUR ---
PT REMAINS SITTING IN CHAIR, SATS 92% LONG HE DOES NOT GET UP TO URINATE OR MOVE AROUND
--- NOTE | 2020-08-17 17:27 | NUR ---
REPORT GIVEN TO CAMILLA ON [facility]. PT PLACED BACK IN BED AND GIVEN DINNER MEAL TRAY, WILL TAKE OVER SOON PT IS FINISHED.
--- NOTE | 2020-08-17 20:10 | NUR ---
PT AWAKE RESTING IN BED. PT IS ALERT AND ORIENTED X4 . RESP EVEN AND UNLABORED. FLAT AFFECT. SKIN WARM AND DRY. LUNGS REVEAL DIMINISHED BREATH SOUNDS. ABD SOFT AND NONDISTENDED WITH BOWEL SOUNDS PRESENT. NO LOWER EXT EDEMA NOTED. PEDAL PULSES PALPATED BILAT. RT LOWER EXT CUFFED TO BED. GUARD AT BEDSIDE. HEPLOCK IS PATENT IN LEFT FOREARM. O2 N/C ON AT 5L. O2 SAT 91%. O2 INCREASED TO 6L. PT DENIES ANY SHORTNESS OF BREATH OR DIFFICULTY BREATHING. TELE AFIB HR 101. URINAL AT BEDSIDE. VOIDING CLEAR YELLOW URINE. WILL CONTINUE TO CLOSELY MONITOR. FREQUENT ROUNDS MADE. CALL WALKER WITHIN REACH.
[2020-08-18] VITALS: BP 142/75
--- NOTE | 2020-08-18 00:16 | NUR ---
RESTING IN BED . RESP EVEN AND UNLABORED. NO DISTRESS NOTED. HEPLOCK IS PATENT. GUARD OUTSIDE OF PT DOOR. WILL CONTINUE TO CLOSELY MONITOR. FREQUENT ROUNDS MADE. CALL WALKER WITHIN REACH.
[2020-08-18 04:00] VITALS: BP 116/60
--- NOTE | 2020-08-18 04:30 | NUR ---
PT RESTING IN BED. RESP EVEN AND UNLABORED. NO DISTRESS NOTED. ASSESSMENT UNCHANGED. HEPLOCK IS PATENT. FREQUENT ROUNDS MADE. CALL WALKER WITHIN REACH.
[2020-08-18 05:40] LABS: HEMATOCRIT 45.3 % (39.0-50.0); MEAN CELL VOLUME 95.4 fL CALC (80.0-100.0); MEAN CORPUSCULAR HGB 31.6 pG CALC (26.0-32.0); MEAN CORPUSCULAR HGB CONC 33.1 g/dL CAL (32.0-36.0); NEUT# 8.88 thou/uL (1.82-7.42); RED BLOOD COUNT 4.75 mill/uL (4.70-6.10); RED CELL DISTRI WIDTH 12.2 % (11.5-15.5)
--- NOTE | 2020-08-18 06:00 | NUR ---
PT AWAKE RESTING IN BED. RESP EVEN AND UNLABORED. O2 N/C DECREASED TO 5L. NO DISTRESS NOTED. HEPLOCK IS PATENT. PT DENIES ANY DIFFICULTY BREATHING OR SHORTNESS OF BREATH. PT OFFERS NO COMPLAINTS. VOIDING CLEAR YELLOW URINE. CALL WALKER WITHIN REACH.
[2020-08-18 06:10] LABS: ALBUMIN 2.9 g/dL (3.2-5.0); ALKALINE PHOSPHATASE 67 u/l (38-126); ANION GAP 9 (6-22 (CALC)); BILIRUBIN, TOTAL 0.7 mg/dL (0.0-1.4); BUN 20 mg/dL (9-20); BUN/CREATININE RATIO 35 (12-20 (CALC)); C-REACTIVE PROTEIN 1.4 mg/dL (0-0.9); CARBON DIOXIDE 30 mmol/l (22-30); CHLORIDE 103 mmol/l (95-108); CREATININE 0.6 mg/dL (0.7-1.3); GFR > 60 ML/MIN (>=60 (CALC)); GFR FOR AFR.AMER. > 60 ML/MIN (>=60 (CALC)); POTASSIUM 4.7 mmol/l (3.5-5.1); SGOT/AST 18 u/l (17-59); SODIUM 137 mmol/l (137-146); TOTAL PROTEIN 5.6 g/dL (6.3-8.2)
--- NOTE | 2020-08-18 08:13 | NUR ---
SHIFT CHANGE REPORT, PT AWAKE ALERT AND ORIENTED RESTING IN BED, DENIES DISCOMFORT, GUARDS BY DOOR OUTSIDE OF ROOM, CALL WALKER IN REACH.
[2020-08-18 08:50] VITALS: BP 122/72
[2020-08-18 10:30] VITALS: BP 109/83
[2020-08-18] MEDS ORDERED: WARFARIN SODIUM5 MG PO (11:09)
--- NOTE | 2020-08-18 12:00 | NUR ---
O2 ADJUSTED TO 3L AND SATURATION REMAINDED AT 90 ON 3L.
--- NOTE | 2020-08-18 14:42 | NUR ---
Discharge instructions given. Patient verbalizes understanding of same. [facility]. All belongings sent with pt.
== END 2020-08-18 14:32 | disposition designated cancer center or children's hospital (05) | DRG 177 ==
LOC: ED 22:59 → ED-I 08-08 00:50 → ED 08-08 01:15 → ICU 08-08 01:16 → MS2 08-08 01:16 → ICU 08-10 15:27 → MS2 08-17 17:53
PROVIDERS: Emergency Medicine; Internal Medicine; Nurse Practitioner; Nurse Practitioner Family; ADMIT Internal Medicine; ATTEND Internal Medicine
PROC: XW033E5 Introduction of Remdesivir Anti-infective into Peripheral Vein, Percutaneous Approach, New Technology Group 5 (ICD-10-PCS; principal; 2020-08-08)
DX: U07.1 COVID-19 (principal); J12.89 Other viral pneumonia; J96.01 Acute respiratory failure with hypoxia; I48.91 Unspecified atrial fibrillation; E03.9 Hypothyroidism, unspecified; E78.5 Hyperlipidemia, unspecified; Z79.01 Long term (current) use of anticoagulants
CPT/HCPCS: J1160; J1650; S0164

== ENCOUNTER 2022-06-05 15:41 | Observation (INO) | payer OTHER ==
[2022-06-05] VITALS (50 sets, daily range): BP systolic 92–144; BP diastolic 61–102
[~2022-06-05] VITALS: Ht 182.9 cm; Wt 88.6 kg
[~2022-06-05 15:41] MED LIST: CARBAMAZEPIN200 M1 PO; DIGITEK0.25 M1 PO; DILTIAZEM90 M1 PO; EYE ALLERG1; LEVOTHYROXIN50 MC1 PO; LIPITOR20 M1 PO; MIRTAZAPINE15 M1 PO; PROTONIX40 M2 PO; WARFARIN SODIUM1 MG PO; WARFARIN SODIUM5 MG PO
[2022-06-05 16:59] LABS: IMMATURE GRANULOCYTES 0.1 % (0.0-5.0); MEAN CELL VOLUME 94.1 fL CALC (80.0-100.0); MEAN CORPUSCULAR HGB 32.1 pG CALC (26.0-32.0); NEUT# 6.6 thou/uL (1.82-7.42); RED BLOOD COUNT 5.46 mill/uL (4.70-6.10); RED CELL DISTRI WIDTH 12.2 % (11.5-15.5)
[2022-06-05 17:01] LABS: HEMATOCRIT 51.4 % (39.0-50.0); HEMOGLOBIN 17.5 g/dl (14.0-18.0)
[2022-06-05 17:09] LABS: ALKALINE PHOSPHATASE 88 u/l (38-126); ANION GAP 17 (6-22 (CALC)); BUN 21 mg/dL (9-20); BUN/CREATININE RATIO 29 (12-20 (CALC)); CARBON DIOXIDE 24 mmol/l (22-30); CHLORIDE 103 mmol/l (95-108); CREATININE 0.7 mg/dL (0.7-1.3); GFR FOR AFR.AMER. > 60 ML/MIN (>=60 (CALC)); GFR OTHER RACES > 60 ML/MIN (>=60 (CALC)); LIPASE 98 u/l (23-300); POTASSIUM 4.2 mmol/l (3.5-5.1); SODIUM 140 mmol/l (137-146)
[2022-06-05 17:13] LABS: SGOT/AST 33 u/l (17-59); TOTAL PROTEIN 8.2 g/dL (6.3-8.2)
[2022-06-05 17:22] LABS: URINE BLOOD DIPSTICK TRACE-INTACT (NEGATIVE); URINE COLOR YELLOW; URINE GLUCOSE - DIPSTICK NEGATIVE (NEGATIVE); URINE KETONE 15 mg/dL (NEGATIVE); URINE LEUK ESTERASE NEGATIVE (NEGATIVE); URINE PH 5.5 (4.5-8.0); URINE PROTEIN - DIPSTICK NEGATIVE (NEG-TRACE); URINE SPECIFIC GRAVITY >=1.030; URINE UROBILINOGEN - DIPSTICK 0.2 E.U./dL (0.2)
[2022-06-05 17:23] LABS: URINE BILIRUBIN - DIPSTICK MODERATE (NEGATIVE); URINE NITRITE - DIPSTICK NEGATIVE (Negative)
[2022-06-05] MEDS ORDERED: LIPITOR40 M1 PO (18:45)
[2022-06-05] MEDS ORDERED: WELLBUTRIN100 M2 PO (18:48)
[2022-06-05] MEDS ORDERED: OLANZAPINE10 MG PO (18:49)
[2022-06-05] MEDS ORDERED: CYMBALTA20 MG PO (18:53)
[2022-06-05] MEDS ORDERED: METOPROL TAR25 MG PO (18:54)
[2022-06-05] MEDS ORDERED: LITHIUM CARBON300 MG PO (18:55)
[2022-06-05] MEDS ORDERED: WARFARIN5 MG PO (19:03)
[2022-06-05 21:50] LABS: INTERNATIONAL NORMALIZED RATIO 1.2 RATIO (0.7-1.3); PROTHROMBIN TIME 11.5 SECONDS (9.0-12.5)
[2022-06-06] VITALS (18 sets, daily range): BP systolic 86–122; BP diastolic 48–83
[2022-06-06 05:59] LABS: HEMATOCRIT 45.8 % (39.0-50.0); HEMOGLOBIN 15.8 g/dl (14.0-18.0); IMMATURE GRANULOCYTES 0.1 % (0.0-5.0); MEAN CELL VOLUME 94.4 fL CALC (80.0-100.0); MEAN CORPUSCULAR HGB 32.6 pG CALC (26.0-32.0); MEAN CORPUSCULAR HGB CONC 34.5 g/dL CAL (32.0-36.0); NEUT# 5.58 thou/uL (1.82-7.42); RED BLOOD COUNT 4.85 mill/uL (4.70-6.10); RED CELL DISTRI WIDTH 12.2 % (11.5-15.5)
[2022-06-06 06:02] LABS: INTERNATIONAL NORMALIZED RATIO 1.2 RATIO (0.7-1.3); PROTHROMBIN TIME 12.2 SECONDS (9.0-12.5)
[2022-06-06 06:06] LABS: ANION GAP 16 (6-22 (CALC)); BUN 23 mg/dL (9-20); BUN/CREATININE RATIO 30 (12-20 (CALC)); CARBON DIOXIDE 23 mmol/l (22-30); CHLORIDE 102 mmol/l (95-108); CREATININE 0.8 mg/dL (0.7-1.3); GFR FOR AFR.AMER. > 60 ML/MIN (>=60 (CALC)); GFR OTHER RACES > 60 ML/MIN (>=60 (CALC)); POTASSIUM 3.7 mmol/l (3.5-5.1); SODIUM 137 mmol/l (137-146)
== END 2022-06-06 10:40 | disposition designated cancer center or children's hospital (05) | DRG 310 ==
LOC: ED 15:41 → ED-I 18:00 → ED 19:10 → ICU 19:11
PROVIDERS: Family Medicine; Internal Medicine; ADMIT Internal Medicine; ATTEND Internal Medicine
DX: I48.91 Unspecified atrial fibrillation (principal); I10 Essential (primary) hypertension; E78.5 Hyperlipidemia, unspecified; E03.9 Hypothyroidism, unspecified; F29 Unspecified psychosis not due to a substance or known physiological condition; F31.9 Bipolar disorder, unspecified; T50.916A Underdosing of multiple unspecified drugs, medicaments and biological substances, initial encounter; Z91.128 Patient's intentional underdosing of medication regimen for other reason; Z20.822 Contact with and (suspected) exposure to COVID-19
CPT/HCPCS: J1650

== ENCOUNTER 2022-07-06 18:15 | Emergency (ER) | payer OTHER ==
[~2022-07-06] VITALS: Ht 182.9 cm; Wt 97.0 kg
[~2022-07-06 18:15] MED LIST changes: +CYMBALTA20 MG PO; +LIPITOR40 M1 PO; +LITHIUM CARBON300 MG PO; +METOPROL TAR25 MG PO; +OLANZAPINE10 MG PO; +WARFARIN5 MG PO; +WELLBUTRIN100 M2 PO
[2022-07-06 18:35] VITALS: BP 114/72
[2022-07-06 18:46] VITALS: BP 109/85
[2022-07-06 19:00] VITALS: BP 105/68
[2022-07-06 19:15] VITALS: BP 107/75
[2022-07-06 19:30] VITALS: BP 108/78
[2022-07-06 20:06] LABS: HEMATOCRIT 51.3 % (39.0-50.0); HEMOGLOBIN 17.4 g/dl (14.0-18.0); MEAN CORPUSCULAR HGB 31.9 pG CALC (26.0-32.0); MEAN CORPUSCULAR HGB CONC 33.9 g/dL CAL (32.0-36.0); NEUT# 3.66 thou/uL (1.82-7.42); RED BLOOD COUNT 5.46 mill/uL (4.70-6.10)
[2022-07-06 20:17] LABS: ALBUMIN 4.3 g/dL (3.2-5.0); ALKALINE PHOSPHATASE 63 u/l (38-126); ANION GAP 16 (6-22 (CALC)); BILIRUBIN, TOTAL 1.1 mg/dL (0.0-1.4); BUN 11 mg/dL (9-20); BUN/CREATININE RATIO 18 (12-20 (CALC)); CARBON DIOXIDE 25 mmol/l (22-30); CHLORIDE 100 mmol/l (95-108); CREATININE 0.6 mg/dL (0.7-1.3); GFR FOR AFR.AMER. > 60 ML/MIN (>=60 (CALC)); GFR OTHER RACES > 60 ML/MIN (>=60 (CALC)); POTASSIUM 3.8 mmol/l (3.5-5.1); SGOT/AST 32 u/l (17-59); SODIUM 138 mmol/l (137-146); TOTAL PROTEIN 7.3 g/dL (6.3-8.2)
[2022-07-06] MEDS ORDERED: ELIQUIS5 MG PO (20:22)
[2022-07-06 21:51] VITALS: BP 108/78
[2022-07-06] MEDS ORDERED: HURRICAINE EX (23:52)
== END 2022-07-07 | disposition designated cancer center or children's hospital (05) | DRG 885 ==
LOC: ED 18:15
PROVIDERS: Emergency Medicine
DX: F31.9 Bipolar disorder, unspecified (principal); R62.7 Adult failure to thrive; Z91.14 Patient's other noncompliance with medication regimen